=== PATIENT | male | born 1965 | race Caucasian/White ===

== ENCOUNTER 2017-08-16 01:51 | Emergency (ER) | payer OTHER ==
[~2017-08-16] VITALS: Ht 182.9 cm; Wt 83.9 kg
[~2017-08-16 01:51] MED LIST: AMOXICILLIN500 M1 PO; DICLOFENAC SODI50 MG PO; FLEXERIL10 MG PO; IBUPROFEN200 MG PO; NICOTINE PATCH1 EAC3 TD; NORCO 5-325 TA1 EACH PO; OXYCODONE HCL15 MG PO; POLYTRIM EYE DR10 ML OD; TYLENOL325 MG PO; VIAGRA50 MG PO
[2017-08-16] MEDS ORDERED: PERCOCET 5-3251 EACH PO (02:23)
== END 2017-08-16 02:30 | disposition home or self-care (01) ==
LOC: ED 01:51
DX: S42.001D Fracture of unspecified part of right clavicle, subsequent encounter for fracture with routine healing (principal); F17.200 Nicotine dependence, unspecified, uncomplicated; W19.XXXD Unspecified fall, subsequent encounter
CPT/HCPCS: 99283

== ENCOUNTER 2017-09-05 10:00 | Day surgery (SDC) | payer OTHER ==
[~2017-09-05] VITALS: Ht 182.9 cm; Wt 83.9 kg
[~2017-09-05 10:00] MED LIST changes: +PERCOCET 5-3251 EACH PO
[2017-09-05] MEDS ORDERED: OXYCODONE HCL5 MG PO (13:11)
[2017-09-05] MEDS ORDERED: NEURONTIN300 MG PO (13:12)
--- NOTE | 2017-09-05 13:21 | NUR ---
09/05/17 1321 Messi Cruz RESPONDS TO TAP AND VOICE AT 1215. OPA REMOVED. REORIENTED PT TO TIME AND SITUATION. INITALLY DENIES PAIN. THEN REPORTS PAIN HAS RETURNED TO BASELINE WHICH IS 5/10. FALLS ASLEEP EASILY. HR DIPS TO 48. WILL PLAN ON MEDICATING FOR PAIN PT EMERGES MORE FROM ANESTHESIA.
--- NOTE | 2017-09-05 14:09 | NUR ---
PT ARRIVED FROM PACU, AWAKE AND TALKING WITH STAFF. REPORT TAKEN. PT RATES PAIN 8/10. DISCUSSED PAIN MEDICATIONS. JELLO AND WATER GIVEN. IVF INFUSING. VITALS STABLE. WILL CONTINUE TO MONITOR. FAMILY AT BEDSIDE. CALL LIGHT IN REACH.
--- NOTE | 2017-09-05 14:39 | NUR ---
LE 1425 IN TO CHECK ON PT. PT DENIES NAUSEA AFTER JELLO. IV SL. PT GIVEN SOUP AND SANDWICH ORDERED. PT ASSISTED UP TO BATHROOM, TOLERATED WELL. ORAL PAIN MEDICATION GIVEN. HOME RX GIVEN TO FAMILY TO DELIVER TO PHARMACY. PT BACK TO BED DOING WELL.
--- NOTE | 2017-09-05 15:08 | OR ---
[facility] [address], [place] [address] Signed DATE OF OPERATION: 09/05/2017 SURGEON: Jordyn Beard MD PREOPERATIVE DIAGNOSIS: Displaced 4-part clavicle fracture, right. POSTOPERATIVE DIAGNOSIS: Displaced 4-part clavicle fracture, right. PROCEDURE PERFORMED: Right clavicle open reduction and internal fixation. DIRECTOR OF CLINICAL SERVICES: Mayuri Merrill PA-C. Mayuri was present in critical positioning, retraction, and wound closure. ANESTHESIA: General. BLOOD LOSS: 100 mL. IMPLANTS: Synthes six-hole clavicle plate 3.5 mm with seven screws. BRIEF HISTORY: Prashanth is a 52-year-old gentleman, who suffered a ground level fall and injury and had a displaced comminuted fracture. Risks, benefits, and alternatives of surgery were discussed with him. He elected to proceed. DESCRIPTION OF PROCEDURE: Once consent was obtained, he was taken to the operating room. After adequate anesthesia, he was placed on operating room table in a beach chair position. All downside pressure points were well-padded. The right shoulder was prepped and draped in a standard sterile fashion. Shoulder was approached through a longitudinal incision, carried through skin and subcutaneous tissue. The deltoid fascia was incised longitudinally and elevated off the clavicle. Debris was then removed so that the fracture fragments could be identified and reduced longitudinal traction was applied. The fracture was reduced and held with two clamps. A single 2.7 mm screw was then Electronically Signed By: JORDYN BEARD MD 09/05/17 1508 PATIENT NAME: PRASHANTH HIDALGO OPERATIVE REPORT DATE OF : 69 REPORT #: [id number] PHYSICIAN: JORDYN BEARD MD PCP: JEANNA INFANTE REPORT IS CONFIDENTIAL AND NOT TO BE RELEASED WITHOUT AUTHORIZATION [facility] [address], [place] [address] Signed placed from superior to inferior to hold the major fragment inferiorly. The plate was then fashioned to fit the dorsal anterior aspect of the clavicle and held in position using a clamp. Two screws were placed one in each end and tightened. Position was checked using image intensifier and found to be satisfactory. The remaining screws were drilled and appropriate length screws were placed incorporating the fracture fragments and main body of the clavicle. Excellent fixation was obtained. Wound was copiously irrigated with antibiotic solution. The clavicular fascia was then repaired using #0 Vicryl, subcutaneous tissue with #2-0 Monocryl, and the skin with rodolfo. Wound was dressed with a Mepilex Ag dressing and Opsite. He was awakened and taken to recovery room in satisfactory condition. All sponge, needle, and instrument counts were correct. We did inject 10 mL of 0.5% plain Marcaine. He tolerated this well. Jordyn Beard MD BA/JOURDANL /[id number] Copies: ~ Electronically Signed By: JORDYN BEARD MD 09/05/17 1508 PATIENT NAME: PRASHANTH HIDALGO OPERATIVE REPORT DATE OF : 69 REPORT #: [id number] PHYSICIAN: JORDYN BEARD MD PCP: JEANNA INFANTE REPORT IS CONFIDENTIAL AND NOT TO BE RELEASED WITHOUT AUTHORIZATION
--- NOTE | 2017-09-05 15:18 | NUR ---
PATIENT GIVEN GABEPENTIN, SITTING UP TO EAT TURKEY SANDWICH. PATIENT REQUESTING MORE INFORMATION ON MEDICATIONS.
== END 2017-09-05 16:30 | disposition home or self-care (01) ==
LOC: DS 10:00
PROVIDERS: Specialist
PROC: 0PS904Z Reposition Right Clavicle with Internal Fixation Device, Open Approach (ICD-10-PCS; principal; 2017-09-05 10:45)
DX: S42.021A Displaced fracture of shaft of right clavicle, initial encounter for closed fracture (principal); F17.210 Nicotine dependence, cigarettes, uncomplicated; W17.89XA Other fall from one level to another, initial encounter
CPT/HCPCS: 01630; 64415; 73000; 76942; C1713; J0690; J1100; J1885; J2250; J2405; J2704; J2765; J2795; J3010; J7120

== ENCOUNTER 2019-06-11 23:48 | Emergency (ER) | payer OTHER ==
[~2019-06-11] VITALS: Ht 182.9 cm; Wt 83.9 kg
[~2019-06-11 23:48] MED LIST changes: +NEURONTIN300 MG PO; +OXYCODONE HCL5 MG PO
[2019-06-12] MEDS ORDERED: CYCLOBENZAPRINE10 MG PO (00:11)
== END 2019-06-12 00:27 | disposition home or self-care (01) ==
LOC: ED 23:48
DX: M54.2 Cervicalgia (principal); F17.200 Nicotine dependence, unspecified, uncomplicated
CPT/HCPCS: 99283

== ENCOUNTER 2020-01-31 06:30 | Day surgery (SDC) | payer OTHER ==
[~2020-01-31] VITALS: Ht 182.9 cm; Wt 76.4 kg
[~2020-01-31 06:30] MED LIST changes: +CYCLOBENZAPRINE10 MG PO
--- NOTE | 2020-01-31 08:06 | NUR ---
01/31/20 0806 Monika Crandall 0753- PT ARRIVES TO PACU. PT WILL OPEN HIS EYES TO NOXIOUS STIMULI, DOES NOT ANSWER QUESTIONS OR FOLLOW INSTRUCTIONS. RESP EVEN AND UNLABORED. OXYGEN SAT HIGH 90'S TO 100% ON 3L VIA NC. 0805- PT PASSING FLATUS.
--- NOTE | 2020-01-31 10:27 | OR ---
[facility] [address] [place], [place] [address] Signed DATE OF OPERATION: 01/31/2020 SURGEON: Vannessa Dumont MD PREOPERATIVE DIAGNOSES: Change in bowel habits with constipation, gas and bloating. POSTOPERATIVE DIAGNOSES: 1. 3 mm polyp at 10 cm. 2. 5 mm polyp at 30 cm. 3. 5 mm polyp at 80 cm. 4. 5 mm polyp at distal right colon. 5. Mild to moderate sigmoid diverticulosis. PROCEDURE: Colonoscopy with hot biopsy. ESTIMATED BLOOD LOSS: None. INDICATIONS: Prashanth is a 55-year-old gentleman, asked to see me for a colonoscopy. He has had a change in bowel habits the last nine months or so. He said the stools soft, but he feels constipated and he is having lots of gas and bloating. He said there is no family history of colon cancer or polyps. He has never had a previous colonoscopy. In the office, I gave him a pamphlet on colonoscopy and we looked at that together along with the risks including, but not limited to gas bloating, crampy abdominal pain, bleeding, perforation requiring surgery, and missed diagnosis. We also discussed the need for IV conscious sedation. He had expressed understanding and wished to proceed. DESCRIPTION OF PROCEDURE: Prashanth was taken into our endoscopy suite and placed in the left lateral decubitus position. He required 12 mg of Versed and 200 mcg of fentanyl to cover the case. He is not a particularly difficult person to scope from a technical standpoint. However, he was quite awake twice during the procedure and talking bed. In that regard, he might benefit from monitored anesthesia care with propofol in the future. A digital rectal exam had been done and this was unremarkable including the prostate. The adult colonoscope had been introduced and advanced under direct visualization of camera. We made it up to the ileocecal valve, but we could not quite get into the cecum itself even with additional sedation and abdominal compression. His prep was quite good. The scope Electronically Signed By: VANNESSA DUMONT MD 01/31/20 1027 PATIENT NAME: PRASHANTH HIDALGO OPERATIVE REPORT DATE OF : 69 REPORT #: [id number] PHYSICIAN: VANNESSA DUMONT MD PCP: FABIENNE CARBAJAL PA-C REPORT IS CONFIDENTIAL AND NOT TO BE RELEASED WITHOUT AUTHORIZATION [facility] [address] [place], [place] [address] Signed was slowly withdrawn. The above-mentioned polyps were easily removed with the help of hot biopsy forceps. He does have diverticula in the sigmoid colon. They were moderate in size, few to moderate in number, and scattered about. Once in the rectum, the scope was retroflexed and there was no additional pathology noted above the anal canal. After this, the gas was suctioned out and the colonoscope removed. Prashanth tolerated his procedure quite well. RECOMMENDATIONS: I will see Prashanth back in my office in 7 to 14 days to review his results. He might consider propofol on his next colonoscopy. When we withdrew the scope, the polyp at 80 cm is probably more closely at 50 cm. Vannessa Dumont MD ALB/MODL /[id number] cc: MD Fabienne Butcher PA Copies: VANNESSA DUMONT MD ~ Electronically Signed By: VANNESSA DUMONT MD 01/31/20 1027 PATIENT NAME: PRASHANTH HIDALGO OPERATIVE REPORT DATE OF : 69 REPORT #: [id number] PHYSICIAN: VANNESSA DUMONT MD PCP: FABIENNE CARBAJAL PA-C REPORT IS CONFIDENTIAL AND NOT TO BE RELEASED WITHOUT AUTHORIZATION
--- NOTE | 2020-02-01 12:05 | PATH ---
[facility] [address] [place], [place] [address] Signed SPECIMEN(S): A COLON POLYP AT 10 CM SPECIMEN(S): B COLON POLYP AT 30 CM SPECIMEN(S): C COLON POLYP AT 80 CM SPECIMEN(S): D RIGHT DISTAL COLON POLYP SPECIMEN SOURCE: A. COLON POLYP AT 10 CM B. COLON POLYP AT 30 CM C. COLON POLYP AT 80 CM D. RIGHT DISTAL COLON POLYP CLINICAL HISTORY: Screening, history constipation. Post-op: Colon polyps, rectal polyp, diverticulosis. Colonoscopy. MICROSCOPIC DESCRIPTION: Histologic sections of all submitted blocks are examined by light microscopy. These findings, together with the gross examination, support the pathologic diagnosis. FINAL PATHOLOGIC DIAGNOSIS: A. Colon, 10 cm, polypectomy: - Hyperplastic polyp. B. Colon, 30 cm, polypectomy: - Hyperplastic polyp. C. Colon, 80 cm, polypectomy: - Tubular adenoma. D. Colon, right distal, polypectomy: - Colonic mucosa with no significant pathologic changes. BRP:cml:C2NR GROSS DESCRIPTION: Four specimens are received in four containers, labeled "RM." A. The specimen, labeled "RM, colon polyp at 10 cm," is received in formalin and consists of one perez soft tissue fragment that measures 0.2 cm in greatest dimension. The specimen is entirely submitted in cassette (A1). B. The specimen, labeled "RM, colon polyp at 30 cm," is received in formalin and consists of one perez soft tissue fragment that measures 0.2 cm in greatest dimension. The specimen is entirely submitted in cassette (B1). C. The specimen, labeled "RM, colon polyp at 80 cm," is received in formalin PATIENT NAME: PRASHANTH HIDALGO PATHOLOGY DATE OF : 69 REPORT #: [id number] PHYSICIAN: AURORA SNELL PCP: KAILA CARBAJAL PA-C REPORT IS CONFIDENTIAL AND NOT TO BE RELEASED WITHOUT AUTHORIZATION [facility] [address] [place] [address] Signed and consists of two perez soft tissue fragments that measure 0.2 cm in greatest dimension. The specimen is entirely submitted in cassette (C1). D. The specimen, labeled "RM, distal ascending colon polyp," is received in formalin and consists of two perez soft tissue fragments that measure 0.1 cm in greatest dimension. The specimen is entirely submitted in cassette (D1). JS (under the direct supervision of a pathologist) The Gross Description was prepared using a voice recognition system. The report was reviewed for accuracy; however, sound-alike word errors, addition and/or deletions may occur. If there is any question about this report, please contact Client Services. PERFORMING LABORATORY: The technical component was performed by [facility] [address] ([employer]: Laila Butler MD; CLIA# [id number]). [facility], [address] [address] (CLIA# [id number]). Diagnostician: Mark Pagan MD Pathologist Electronically Signed 02/01/2020 Copies: ~ PATIENT NAME: PRASHANTH HIDALGO PATHOLOGY DATE OF : 69 REPORT #: [id number] PHYSICIAN: [facility] PCP: KAILA CARBAJAL PA-C REPORT IS CONFIDENTIAL AND NOT TO BE RELEASED WITHOUT AUTHORIZATION
== END 2020-01-31 09:00 | disposition home or self-care (01) ==
LOC: DS 06:30 → OPS 06:30 → DS 07:30 → OPS 07:30
PROVIDERS: ATTEND Colon & Rectal Surgery
PROC: 0DBE8ZX Excision of Large Intestine, Via Natural or Artificial Opening Endoscopic, Diagnostic (ICD-10-PCS; 2020-01-31)
PROC: 0DBF8ZX Excision of Right Large Intestine, Via Natural or Artificial Opening Endoscopic, Diagnostic (ICD-10-PCS; principal; 2020-01-31 07:30)
DX: D12.6 Benign neoplasm of colon, unspecified (principal); K63.5 Polyp of colon; K57.30 Diverticulosis of large intestine without perforation or abscess without bleeding; K59.00 Constipation, unspecified; R14.0 Abdominal distension (gaseous); F17.210 Nicotine dependence, cigarettes, uncomplicated
CPT/HCPCS: 99153; G0500; J2250; J3010; J7121